=== PATIENT | male | born 1965 | race Two or more races ===

== ENCOUNTER 2024-11-06 09:17 | Inpatient (IN) | payer MEDICAID, OTHER ==
[~2024-11-06] VITALS: Ht 167.6 cm; Wt 59.0 kg
[2024-11-06] VITALS (11 sets, daily range): BP systolic 100–122; BP diastolic 51–66; PULSE 55–64; RESP 11–20; TEMP 97.7–98.5; O2SAT 96–100
--- NOTE | 2024-11-06 09:37 | ED.PDOC ---
History of Present Illness HPI Comments This is a 59-year-old male with past medical history of hypertension presented to the ED with a chief complaint of bilateral leg swelling and shortness of breath on exertion for last 1 month getting worse that prompted this visit. The patient states that for last 1 month he is getting short of breath especially after few blocks of walking, noticing unintentional weight loss for last couple of months and also complaint of chills and night sweats. He denies fever, nausea, vomiting, headache, dizziness vision, dysuria, hematuria or any changes in bowel and bladder habit or any blood in the stool. Chief Complaint: Lower Extremity Time Seen by MD: 09:22 Allergies: Coded Allergies: NO KNOWN ALLERGIES (Unverified , 11/06/24) Information Source: Patient Mode of Arrival: Ambulatory Severity: Moderate Timing: Months Duration: Since onset Prehospital treatment: None Past Medical History PAST MEDICAL HISTORY: DM, HTN Surgical History: Denies all surgeries Family History Family History: Reviewed,noncontributory to illness Social History Smoker: Cigarettes, Less Than 1 Pack/Day Alcohol: Heavy Drugs: Denies Drug Use Lives In: Homeless Constitutional: reports: chills, fatigue, malaise, sweats, weakness EENTM: denies: blurred vision, double vision, ear bleeding, ear discharge, ear drainage, ear pain, ear ringing, eye pain, eye redness, hearing loss, mouth pain, mouth swelling, nasal discharge, nose bleeding, nose congestion, nose pain, photophobia, tearing, throat pain, throat swelling, voice changes, others Respiratory: reports: shortness of breath, SOB with excertion Cardiovascular: reports: lightheadedness Gastrointestinal: denies: abdomen distended, abdominal pain, blood streaked bowels, constipated, diarrhea, dysphagia, difficulty swallowing, hematemesis, melena, nausea, poor appetite, poor fluid intake, rectal bleeding, rectal pain, vomiting, others Genitourinary: denies: burning, dysuria, flank pain, frequency, hematuria, incontinence, penile discharge, penile sore, pain, testicle pain, testicle swelling, urgency, others Neurological: denies: dizziness, fainting, headache, left sided numbness, left sided weakness, numbness, paresthesia, pre-existing deficit, right sided numbness, right sided weakness, seizure, speech problems, tingling, tremors, weakness, others Musculoskeletal: reports: others (Bilateral swelling of the ankle) Integumetry: denies: bruises, change in color, change in hair/nails, dryness, laceration, lesions, lumps, rash, wounds, others Hematologic/Lymphatic: denies: anemia, blood clots, easy bleeding, easy bruising, swollen glands, others Endocrine: denies: excessive hunger, excessive sweating, excessive thirst, excessive urination, flushing, intolerance to cold, intolerance to heat, unexp lained weight gain, unexplained weight loss, others Psychiatric: denies: anxiety, bipolar disorder, depression, hopeless, panic disorder, schizophrenia, sleepless, suicidal, others Physical Exam General Appearance: Moderate Distress, Thin HEENT: Pale Conjuntivae (L), Pale Conjuntivae (R) Neck: Full Range of Motion, Non-Tender, Normal, Normal Inspection Respiratory: Chest Non-Tender, Lungs Clear, No Accessory Muscle Use, No Respiratory Distress, Normal Breath Sounds Cardiovascular: No JVD, No Murmur, Normal Peripheral Pulses, Regular Rate/Rhythm Breast Exam: Deferred Gastrointestinal: No Organomegaly, Non Tender, No Pulsatile Mass, Normal Bowel Sounds, Soft Genitalia: Deferred Pelvic: Deferred Rectal: Deferred Extremities: Leg edema, Normal capillary refill, Normal range of motion, Non- tender, Pedal edema Neurologic: Alert, 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 Was a procedure done?: No Differential Dx Considerations may include: Generalized weakness, severe anemia, colonic malignancy, hyperglycemic nonketotic coma, DVT, CHF X-Ray, Labs, Meds, VS Vital Signs Date Time Temp Pulse Resp B/P (MAP) Pulse Ox O2 Delivery O2 Flow Rate FiO2 11/06/24 09:20 98.2 85 13 107/55 100 98.2 Lab Test 11/06/24 10:22 Range/Units White Blood Count 5.3 4.4-10.8 10^3/uL Red Blood Count 2.29 L 4.5-5.90 10^6/uL Hemoglobin 3.8 *L 13.5-17.5 g/dL Hematocrit 14.4 L 41.0-53.0 % Mean Corpuscular Volume 62.8 L 80.0-100.0 fL Mean Corpuscular Hemoglobin 16.4 L 28.0-32.0 pg Mean Corpuscular Hemoglobin Concent 26.2 L 32.0-36.0 g/dL Red Cell Distribution Width 21.7 H 11.8-14.3 % Platelet Count 227 140-450 10^3/uL Mean Platelet Volume 9.5 6.9-10.8 fL Neutrophils (%) (Auto) 71.3 37.0-80.0 % Lymphocytes (%) (Auto) 17.5 10.0-50.0 % Monocytes (%) (Auto) 8.9 0.0-12.0 % Eosinophils (%) (Auto) 2.1 0.0-7.0 % Basophils (%) (Auto) 0.2 0.0-2.0 % Neutrophils # (Auto) 3.8 1.6-8.6 10 ^3/uL Lymphocytes # (Auto) 0.9 0.4-5.4 10 ^3/uL Monocytes # (Auto) 0.5 0-1.3 10 ^3/uL Eosinophils # (Auto) 0.1 0-0.8 10 ^3/uL Basophils # (Auto) 0 0-0.2 10 ^3/uL Nucleated Red Blood Cells 0.5 % Platelet Estimate Adequate Polychromasia Slight Hypochromasia (manual) Marked Anisocytosis (manual) Moderate Microcytosis Marked Sodium Level 131 L 136-145 mmol/L Potassium Level 4.0 3.5-5.1 mmol/L Chloride Level 101 98-107 mmol/L Carbon Dioxide Level 23 20-31 mmol/L Anion Gap 7 5-15 Blood Urea Nitrogen 6 L 9-23 mg/dL Creatinine 0.90 0.700-1.30 mg/dL Glomerular Filtration Rate Calc 98 >90 mL/min BUN/Creatinine Ratio 6.7 L 10.0-20.0 Serum Glucose 543 *H 74-106 mg/dL Calcium Level 8.3 L 8.7-10.4 mg/dL Total Bilirubin 0.4 0.2-1.0 mg/dL Aspartate Amino Transferase (AST) 21 13-40 U/L Alanine Aminotransferase (ALT) 25 7-40 U/L Alkaline Phosphatase 90 46-116 U/L Total Protein 6.4 5.7-8.2 g/dL Albumin 3.4 3.2-4.8 g/dL X-Ray, Labs, Meds, VS Comment Bilateral lower extremity venous duplex Clinical History: To rule out DVT Comparison: None Technique: Duplex Doppler evaluation of the deep venous systems of both lower extremities from the common femoral veins to the popliteal veins including color Doppler and spectral/pulsed waveform analysis was performed. Findings: RIGHT SIDE: The common femoral vein demonstrates appropriate compressibility and waveform variability. There is compressibility/patency of the great saphenous vein at the proximal thigh. The femoral vein demonstrates appropriate compressibility and waveform variability. The deep femoral vein demonstrates appropriate compressibility and waveform variability. The popliteal vein demonstrates appropriate compressibility and waveform variability. There is normal compressibility at the tibioperoneal trunk. LEFT SIDE: The common femoral vein demonstrates appropriate compressibility and waveform variability. There is compressibility/patency of the great saphenous vein at the proximal thigh. The femoral vein demonstrates appropriate compressibility and waveform variability. The deep femoral vein demonstrates appropriate compressibility and waveform variability. The popliteal vein demonstrates appropriate compressibility and waveform variability. There is normal compressibility at the tibioperoneal trunk. Impression: No right or left femoropopliteal venous thrombosis. Exam: CT CT AB PEL WO CON-NO ORAL OR IV History: Weight loss Comparison Study: None Technique: Multidetector spiral CT of the abdomen was performed from lung bases to pubic symphysis. Imaging was performed without IV contrast. Axial, coronal and sagittal multiplanar reformats were obtained from the axial data set by the technologist. Radiation Dose : 1. Abdomen/Pelvis: CTDIvol 5.35 mGy, DLP 319.31 mGy*cm. Findings: Evaluation of solid organs is limited due to lack of intravenous contrast use. Lung Bases: No acute or significant lung base finding. Normal heart size. No pleural or pericardial effusion. Liver: The liver is normal in size. No focal lesions. Gallbladder and Biliary Tree: Unremarkable Spleen: Unremarkable Pancreas: Coarse calcifications associated with pancreatic atrophy. This likely represents changes of chronic pancreatitis. Adrenal Glands: Unremarkable Kidneys: Kidneys are grossly normal without calculi or hydronephrosis. Bladder: Grossly unremarkable for degree of distention. Bowel: The stomach is grossly normal in appearance. Mild bowel wall thickening of the ascending colon. The appendix is not visualized; however, no secondary findings of acute appendicitis identified. Ascites: Absent Lymphadenopathy: No mesenteric, retroperitoneal or periportal lymphadenopathy. Abdominal Wall and Mesentery: Unremarkable. Vasculature: The visualized abdominal aorta is normal in size and caliber. There is extensive atherosclerotic calcification of the aorta and its branches. Evaluation of abdominal and pelvic vessels is limited due to lack of intravenous contrast. Pelvic Organs: Unremarkable Musculoskeletal: No aggressive focal bony lesions, acute fractures or dislocation. IMPRESSION: Changes of chronic pancreatitis. Possible mild colitis involving the ascending colon. Otherwise, no acute findings. XY CHEST PORTABLE, HISTORY: Shortness of breath COMPARISON: None None TECHNICAL DATA: 1 view of the chest was obtained. FINDINGS: Lines and tubes: None Cardiomediastinal silhouette: normal Pulmonary vasculature: normal Lung expansion: normal Lung airspace: normal Lung interstitium: normal Pleura: normal Pneumothorax: no Bones: Unremarkable Other: no IMPRESSION: No acute intrathoracic abnormality. Images Reviewed?: Images reviewed and evaluated by me Time of 1ST Reevaluation: 12:01 Reevaluation 1ST: Unchanged Patient Education/Counseling: Diagnosis, Treatment Family Education/Counseling: No Family Present Comments This is a 59-year-old male presented to the ER with a chief complaint of generalized weakness and bilateral leg swelling, weight loss for last 1 month Initial physical examination demonstrated pale conjunctiva. CBC demonstrated hemoglobin 3.8 and BMP showed blood sugar 543 with normal anion gap. The patient will be admitted for evaluation of severe anemia, occult malignancy and management of uncontrolled type 2 diabetes mellitus. SEPSIS Sepsis Screen Date sepsis recognized/suspect: Nov 06, 2024 Time Sepsis recognized/suspect: 919 Recent Procedure: No On Antibiotic Therapy: No Respiratory Rate >20: No Heart Rate >90: No Temp<36 C (96.8 F) or >38.3 C: No SBP <90 or MAP <65 mmHG: No New Acute Mental Status Change: No Is the patient on CPAP, BIPAP,: No Physician Orders Urinalysis (11/06/24 09:30) Chest Portable (11/06/24 09:30) Bilat Lower Dvt (11/06/24 09:30) Stool Occult Blood (11/06/24 09:30) Ct Ab Pel Wo Con-No Oral Or Iv (11/06/24 09:30) Packedcells -Active Bleeding (11/06/24 11:08) Type And Screen (11/06/24 11:08) Insulin R (Human) (Insulin R) (11/06/24 12:00) Sodium Chloride 0.9% (11/06/24 12:00) Vital Signs Date Time Temp Pulse Resp B/P (MAP) Pulse Ox O2 Delivery O2 Flow Rate FiO2 11/06/24 09:20 98.2 85 13 107/55 100 98.2 Laboratory Tests Test 11/06/24 10:22 White Blood Count 5.3 10^3/uL (4.4-10.8) Departure 1 Departure Time of Disposition: 12:03 Impression: Primary Impression: Severe anemia Additional Impression: Uncontrolled type 2 diabetes mellitus Disposition: ADMITTED INPATIENT Admit to: Med Surg Condition: Guarded Critical Care Note Critical Care Time?: No Stability Stability form required: LUZMARIA Jara RESIDENT Nov 06, 2024 09:37
--- NOTE | 2024-11-06 10:34 | DVH ---
Bilateral lower extremity venous duplex Clinical History: To rule out DVT Comparison: None Technique: Duplex Doppler evaluation of the deep venous systems of both lower extremities from the common femora l veins to the popliteal veins including color Doppler and spectral/pulsed waveform analysis was perf ormed. Findings: RIGHT SIDE: The common femoral vein demonstrates appropriate compressibility and waveform variability. There is compressibility/patency of the great saphenous vein at the proximal thigh. The femoral vein demonstrates appropriate compressibility and waveform variability. The deep femoral vein demonstrates appropriate compressibility and waveform variability. The popliteal vein demonstrates appropriate compressibility and waveform variability. There is normal compressibility at the tibioperoneal trunk. LEFT SIDE: The common femoral vein demonstrates appropriate compressibility and waveform variability. There is compressibility/patency of the great saphenous vein at the proximal thigh. The femoral vein demonstrates appropriate compressibility and waveform variability. The deep femoral vein demonstrates appropriate compressibility and waveform variability. The popliteal vein demonstrates appropriate compressibility and waveform variability. There is normal compressibility at the tibioperoneal trunk. Impression: No right or left femoropopliteal venous thrombosis.
--- NOTE | 2024-11-06 10:38 | DVH ---
Exam: CT CT AB PEL WO CON-NO ORAL OR IV History: Weight loss Comparison Study: None Technique: Multidetector spiral CT of the abdomen was performed from lung bases to pubic symphysis. I maging was performed without IV contrast. Axial, coronal and sagittal multiplanar reformats were obta ined from the axial data set by the technologist. Radiation Dose : 1. Abdomen/Pelvis: CTDIvol 5.35 mGy, DLP 319.31 mGy*cm. Findings: Evaluation of solid organs is limited due to lack of intravenous contrast use. Lung Bases: No acute or significant lung base finding. Normal heart size. No pleural or pericardial effusion. Liver: The liver is normal in size. No focal lesions. Gallbladder and Biliary Tree: Unremarkable Spleen: Unremarkable Pancreas: Coarse calcifications associated with pancreatic atrophy. This likely represents changes of chronic pancreatitis. Adrenal Glands: Unremarkable Kidneys: Kidneys are grossly normal without calculi or hydronephrosis. Bladder: Grossly unremarkable for degree of distention. Bowel: The stomach is grossly normal in appearance. Mild bowel wall thickening of the ascending colon . The appendix is not visualized; however, no secondary findings of acute appendicitis identified. Ascites: Absent Lymphadenopathy: No mesenteric, retroperitoneal or periportal lymphadenopathy. Abdominal Wall and Mesentery: Unremarkable. Vasculature: The visualized abdominal aorta is normal in size and caliber. There is extensive athero sclerotic calcification of the aorta and its branches. Evaluation of abdominal and pelvic vessels is limited due to lack of intravenous contrast. Pelvic Organs: Unremarkable Musculoskeletal: No aggressive focal bony lesions, acute fractures or dislocation. IMPRESSION: Changes of chronic pancreatitis. Possible mild colitis involving the ascending colon. Otherwise, no acute findings.
--- NOTE | 2024-11-06 10:41 | DVH ---
XY CHEST PORTABLE, HISTORY: Shortness of breath COMPARISON: None None TECHNICAL DATA: 1 view of the chest was obtained. FINDINGS: Lines and tubes: None Cardiomediastinal silhouette: normal Pulmonary vasculature: normal Lung expansion: normal Lung airspace: normal Lung interstitium: normal Pleura: normal Pneumothorax: no Bones: Unremarkable Other: no IMPRESSION: No acute intrathoracic abnormality.
[2024-11-06 10:50] LABS: Hematocrit 14.4 % (41.0-53.0); Mean Corpuscular Hemoglobin 16.4 pg (28.0-32.0); Mean Corpuscular Volume 62.8 fL (80.0-100.0); Nucleated Red Blood Cells % 0.5 %
[2024-11-06 10:59] LABS: Hemoglobin 3.8 g/dL (13.5-17.5)
[2024-11-06 11:08] LABS: Alanine Aminotransferase 25 U/L (7-40); Alkaline Phosphatase 90 U/L (46-116); Anion Gap 7 (5-15); BUN/Creatinine Ratio 6.7 (10.0-20.0); Carbon Dioxide 23 mmol/L (20-31); Chloride 101 mmol/L (98-107); Potassium 4.0 mmol/L (3.5-5.1); Total Protein 6.4 g/dL (5.7-8.2)
[2024-11-06 11:09] LABS: Albumin 3.4 g/dL (3.2-4.8); Bilirubin, Total 0.4 mg/dL (0.2-1.0)
[2024-11-06 11:20] LABS: Blood Urea Nitrogen 6 mg/dL (9-23); Calcium 8.3 mg/dL (8.7-10.4); Sodium 131 mmol/L (136-145)
[2024-11-06 11:22] LABS: Glucose 543 mg/dL (74-106)
[2024-11-06 11:30] LABS: Anisocytosis Moderate; Polychromasia Slight
[2024-11-06] MEDS ORDERED: DEXTROSE (50%) 50ML SYRG IV PRN (12:30)
[2024-11-06] MEDS ORDERED: ONDANSETRON HCL 4 MG/2 ML VIAL IV PRN (12:30)
[2024-11-06] MEDS ORDERED: DOCUSATE SOD 100 MG CAP PO PRN (12:30)
[2024-11-06] MEDS ORDERED: ACETAMINOPHEN 325 MG TAB PO PRN (12:30)
[2024-11-06] MEDS ORDERED: HYDROcodone-ACET 5/325MG TAB PO PRN (12:30)
--- NOTE | 2024-11-06 12:35 | DVHHP2 ---
Admitting Diagnosis: Lower extremity edema History of Present Illness This is a 59-year-old male with past medical history of hypertension presented to the ED with a chief complaint of bilateral leg swelling and shortness of breath on exertion for last 1 month getting worse that prompted this visit. The patient states that for last 1 month he is getting short of breath especially after few blocks of walking, noticing unintentional weight loss for last couple of months and also complaint of chills and night sweats. He denies fever, nausea, vomiting, headache, dizziness vision, dysuria, hematuria or any changes in bowel and bladder habit or any blood in the stool. PAST MEDICAL HISTORY: DM, HTN Surgical History: Denies all surgeries Family History Family History: Reviewed,noncontributory to illness Social History Smoker: Cigarettes, Less Than 1 Pack/Day Alcohol: Heavy Drugs: Denies Drug Use Lives In: Homeless Allergies: Coded Allergies: NO KNOWN ALLERGIES (Unverified , 11/06/24) Vital Signs Vital Signs Date Time Temp Pulse Resp B/P (MAP) Pulse Ox O2 Delivery O2 Flow Rate FiO2 11/06/24 09:20 98.2 85 13 107/55 100 98.2 Physical Exam Generally-59 years old male, well nourished well developed. No apparent distress HEENT-atraumatic normocephalic Heart-regular rate and rhythm Lungs decreased breath sounds bilateral lower lung ro Abdomen soft nontender nondistended Musculoskeletal plus two pedal edema Neuro-AO x3, no focal deficits SEPSIS Sepsis Screen Date sepsis recognized/suspect: Nov 06, 2024 Time Sepsis recognized/suspect: 919 Recent Procedure: No On Antibiotic Therapy: No Respiratory Rate >20: No Heart Rate >90: No Temp<36 C (96.8 F) or >38.3 C: No SBP <90 or MAP <65 mmHG: No New Acute Mental Status Change: No Is the patient on CPAP, BIPAP,: No Physician Orders Urinalysis (11/06/24 09:30) Chest Portable (11/06/24 09:30) Bilat Lower Dvt (11/06/24 09:30) Stool Occult Blood (11/06/24 09:30) Ct Ab Pel Wo Con-No Oral Or Iv (11/06/24 09:30) Packedcells -Active Bleeding (11/06/24 11:08) Type And Screen (11/06/24 11:08) Sodium Chloride 0.9% (11/06/24 12:00) * [facility] Shoe Clerk (11/06/24 12:12) Beta-Hydroxybutyrate (11/06/24:24) Comprehensive Metabolic Panel (11/07/24 05:00) Comprehensive Metabolic Panel (11/08/24 05:00) Comprehensive Metabolic Panel (11/09/24 05:00) Comprehensive Metabolic Panel (11/10/24 05:00) Comprehensive Metabolic Panel (11/11/24 05:00) Complete Blood Count (11/07/24 05:00) Complete Blood Count (11/08/24 05:00) Complete Blood Count (11/09/24 05:00) Complete Blood Count (11/10/24 05:00) Complete Blood Count (11/11/24 05:00) Admit (11/06/24:24) Code Status (11/06/24:) Vital Signs .PER UNIT PROTOCOL (11/06/24:24) Review Orders With Adm.Md (11/06/24 12:24) Encourage Activity As Tolerate (11/06/24 12:24) Npo (Nothing By Mouth) Diet (11/06/24 Lunch) Sodium Chloride Lock (Saline Lock Ns) (11/06/24 14:00) Docusate Sodium Capsule (Colace Capsule) (11/06/24 12:30) Acetaminophen Tablet (Tylenol Tablet) (11/06/24 12:30) Notify Md Of Changes From Base (11/06/24 12:24) Advance Directive (11/06/24 12:24) Patient Condition (11/06/24 12:24) Allergies (11/06/24 12:24) Hydrocodone-Acet 5/325mg Tab ([place] 5/32 (11/06/24 12:30) Ondansetron Hcl (Zofran) (11/06/24 12:30) Glucose Blood (Accu-Chek Comfort Curve T (11/06/24 17:00) Insulin R (Human) (Insulin R) (11/06/24 17:00) Dextrose 50% Syringe (11/06/24 12:30) Iron Panel (11/06/24:26) Vital Signs Date Time Temp Pulse Resp B/P (MAP) Pulse Ox O2 Delivery O2 Flow Rate FiO2 11/06/24 09:20 98.2 85 13 107/55 100 98.2 Laboratory Tests Test 11/06/24 10:22 White Blood Count 5.3 10^3/uL (4.4-10.8) Results Labs Test 11/06/24 10:22 Range/Units White Blood Count 5.3 4.4-10.8 10^3/uL Red Blood Count 2.29 L 4.5-5.90 10^6/uL Hemoglobin 3.8 *L 13.5-17.5 g/dL Hematocrit 14.4 L 41.0-53.0 % Mean Corpuscular Volume 62.8 L 80.0-100.0 fL Mean Corpuscular Hemoglobin 16.4 L 28.0-32.0 pg Mean Corpuscular Hemoglobin Concent 26.2 L 32.0-36.0 g/dL Red Cell Distribution Width 21.7 H 11.8-14.3 % Platelet Count 227 140-450 10^3/uL Mean Platelet Volume 9.5 6.9-10.8 fL Neutrophils (%) (Auto) 71.3 37.0-80.0 % Lymphocytes (%) (Auto) 17.5 10.0-50.0 % Monocytes (%) (Auto) 8.9 0.0-12.0 % Eosinophils (%) (Auto) 2.1 0.0-7.0 % Basophils (%) (Auto) 0.2 0.0-2.0 % Neutrophils # (Auto) 3.8 1.6-8.6 10 ^3/uL Lymphocytes # (Auto) 0.9 0.4-5.4 10 ^3/uL Monocytes # (Auto) 0.5 0-1.3 10 ^3/uL Eosinophils # (Auto) 0.1 0-0.8 10 ^3/uL Basophils # (Auto) 0 0-0.2 10 ^3/uL Nucleated Red Blood Cells 0.5 % Platelet Estimate Adequate Polychromasia Slight Hypochromasia (manual) Marked Anisocytosis (manual) Moderate Microcytosis Marked Sodium Level 131 L 136-145 mmol/L Potassium Level 4.0 3.5-5.1 mmol/L Chloride Level 101 98-107 mmol/L Carbon Dioxide Level 23 20-31 mmol/L Anion Gap 7 5-15 Blood Urea Nitrogen 6 L 9-23 mg/dL Creatinine 0.90 0.700-1.30 mg/dL Glomerular Filtration Rate Calc 98 >90 mL/min BUN/Creatinine Ratio 6.7 L 10.0-20.0 Serum Glucose 543 *H 74-106 mg/dL Calcium Level 8.3 L 8.7-10.4 mg/dL Total Bilirubin 0.4 0.2-1.0 mg/dL Aspartate Amino Transferase (AST) 21 13-40 U/L Alanine Aminotransferase (ALT) 25 7-40 U/L Alkaline Phosphatase 90 46-116 U/L Total Protein 6.4 5.7-8.2 g/dL Albumin 3.4 3.2-4.8 g/dL Primary Diagnosis Shortness of breaths Severe anemia microcytic Lateral lower extremity rule out CHF Plan Check a blood Check ferritin iron to assess for iron deficiency anemia Check echo of the heart to assess for heart failure If positive for heart failure start iv lasix as BP tolerated GI consult in ED. Follow up with the recommendation NPO after midnight PPI b.i.d. for GI prophylaxis Transfusion goal greater than seven Keep active type and screen Check hemoglobin A1c Insulin sliding scale Full code SCD for DVT prophylaxis Plan discussed with: Patient Problems List: (1) Uncontrolled type 2 diabetes mellitus Status: Acute (2) Severe anemia Status: Acute Date of Service: Nov 06, 2024 Billing Provider: SHAYY DE LOS SANTOS MD Common Visit Codes: [id number] INP/OBS CARE (HIGH) SHAYY DE LOS SANTOS MD Nov 06, 2024 12:34
[2024-11-06] MEDS: SODIUM CHLORIDE 0.9% 500 ML IV ONE (12:57)
--- NOTE | 2024-11-06 13:07 | DVHINCON2 ---
GI Consult Consult Note GI consult note Date of Consultation: 11/06/2024 Chief Complaint: Severe anemia Referring Physician: Dr. Angel H&P: 59-year-old Salvadorean-speaking patient with past medical history of hypertension presented to ER with complains of bilateral leg swelling and shortness of breath for the past one month. RN at bedside translating. Patient denies abdominal pain. No nausea vomiting. Regular bowel movements. No melena or red blood in stool. Patient has unintentional weight loss for the last couple of months probably more than 20 lb. No EGD or colonoscopy in past. Patient denies having history of anemia or blood transfusions in past Past Medical History: Dm, HTN Past Surgical History: Denies Social History: Smoker: Cigarettes, Less Than 1 Pack/Day Alcohol: Heavy Drugs: Denies Drug Use Lives In: Homeless Family History: Noncontributory Review of Systems: Constitutional: no fever, chill, weight loss HEENT: no eye pain, no hearing loss, no oral lesion, no scleral icterus Heart: no chest pain, no chest pressure Lung: no cough, no dyspnea with exertion Abdomen: see HPI Physical exam: General: NAD, AAOX3 Chest: , lung ro clear to auscultation Heart: RRR, no murmur Abdomen: non-distended, no tenderness to palpation, +BS Labs: Labs Test 11/06/24 12:46 11/06/24 10:22 Range/Units White Blood Count 5.3 4.4-10.8 10^3/uL Red Blood Count 2.29 L 4.5-5.90 10^6/uL Hemoglobin 3.8 *L 13.5-17.5 g/dL Hematocrit 14.4 L 41.0-53.0 % Mean Corpuscular Volume 62.8 L 80.0-100.0 fL Mean Corpuscular Hemoglobin 16.4 L 28.0-32.0 pg Mean Corpuscular Hemoglobin Concent 26.2 L 32.0-36.0 g/dL Red Cell Distribution Width 21.7 H 11.8-14.3 % Platelet Count 227 140-450 10^3/uL Mean Platelet Volume 9.5 6.9-10.8 fL Neutrophils (%) (Auto) 71.3 37.0-80.0 % Lymphocytes (%) (Auto) 17.5 10.0-50.0 % Monocytes (%) (Auto) 8.9 0.0-12.0 % Eosinophils (%) (Auto) 2.1 0.0-7.0 % Basophils (%) (Auto) 0.2 0.0-2.0 % Neutrophils # (Auto) 3.8 1.6-8.6 10 ^3/uL Lymphocytes # (Auto) 0.9 0.4-5.4 10 ^3/uL Monocytes # (Auto) 0.5 0-1.3 10 ^3/uL Eosinophils # (Auto) 0.1 0-0.8 10 ^3/uL Basophils # (Auto) 0 0-0.2 10 ^3/uL Nucleated Red Blood Cells 0.5 % Platelet Estimate Adequate Polychromasia Slight Hypochromasia (manual) Marked Anisocytosis (manual) Moderate Microcytosis Marked Sodium Level 131 L 136-145 mmol/L Potassium Level 4.0 3.5-5.1 mmol/L Chloride Level 101 98-107 mmol/L Carbon Dioxide Level 23 20-31 mmol/L Anion Gap 7 5-15 Blood Urea Nitrogen 6 L 9-23 mg/dL Creatinine 0.90 0.700-1.30 mg/dL Glomerular Filtration Rate Calc 98 >90 mL/min BUN/Creatinine Ratio 6.7 L 10.0-20.0 Serum Glucose 543 *H 74-106 mg/dL Calcium Level 8.3 L 8.7-10.4 mg/dL Total Bilirubin 0.4 0.2-1.0 mg/dL Aspartate Amino Transferase (AST) 21 13-40 U/L Alanine Aminotransferase (ALT) 25 7-40 U/L Alkaline Phosphatase 90 46-116 U/L Total Protein 6.4 5.7-8.2 g/dL Albumin 3.4 3.2-4.8 g/dL Imaging: CT abdomen pelvis IMPRESSION: Changes of chronic pancreatitis. Possible mild colitis involving the ascending colon. Otherwise, no acute findings. Assessment: Severe anemia Weight loss Possible colitis Plan: Discussed with Dr. Leyva Transfuse until hemoglobin 7.0 Protonix Stool for occult blood Clear liquid diet - Pt will be scheduled for a possible EGD tomorrow 11/06/2024 if medically stable and cleared for procedure. Pt was informed of the risks (bleeding, infection, perforation, reaction to sedation medications and cardiopulmonary arrest) and benefit and is agreeable to undergo the procedures. Discussed plan with patient RN and Dr. Poole ER doctor Thank you for this consult Date of Service: Nov 06, 2024 Billing Provider: CHRIS COOPER Common Visit Codes: CONSULT ONLY Consultation Codes: [id number] CONSULT <60MIN CHRIS COOPER Nov 06, 2024 13:07
[2024-11-06] MEDS: InsuLIN REG 1unit/0.01ml Soln (100units/ml) IV ONE ×2 (13:11→15:25)
[2024-11-06 13:32] LABS: Iron 11.0 ug/dL (65-175)
[2024-11-06 13:33] LABS: Total Iron Binding Capacity 327.0 ug/dL (250-425)
[2024-11-06] MEDS: SODIUM CHLOR 0.9% PF (SALINE LOCK) 10ML VIAL/SYR IV SCH (14:00)
[2024-11-06 14:14] LABS: Urine Protein, UAD Negative (Negative)
[2024-11-06 14:28] LABS: Amphetamine Screen, Urine Neg (NEGATIVE); Barbiturate Scree,Urine Neg (NEGATIVE); Benzodiazephine Screen, Urine Neg (NEGATIVE); Cannabinoid Screen, Urine Neg (NEGATIVE); Cocaine Screen, Urine Neg (NEGATIVE); Opiate Scree,Urine Neg (NEGATIVE); Phencyclidine Screen, Urine Neg (NEGATIVE)
[2024-11-06] MEDS: ACCU-CHEK COMFORT CURVE STRIP VI SCH (17:48)
[2024-11-06] MEDS: InsuLIN REG 1unit/0.01ml Soln (100units/ml) SC SCH (17:49)
[2024-11-07] VITALS (13 sets, daily range): BP systolic 100–118; BP diastolic 52–61; PULSE 50–69; RESP 16–18; TEMP 97.4–98.6; O2SAT 97–100
--- NOTE | 2024-11-07 00:20 | DVHSR ---
APPROVED REPORT EXAM: Two-dimensional and M-mode echocardiogram with Doppler and color Doppler. Blood Pressure: 107/55 mmHg INDICATION b/l lower leg edema assess for CHF RISK FACTORS Height: 5' 7", Weight: 130 DIMENSIONS LVDd5.2 (3.8-5.7cm)LA (2D)4.1 (1.9-4.0cm)Aortic Root3.5 (2.0-3.7cm) LVDs3.6 (2.5-4.0cm)LA (MM) (1.9-4.0cm)Aortic Cusp Exc1.6 (1.5-2.0cm) EF (%) 57.0 (55-70%)Rt. Atrium4.1 (1.9-4.0cm)Asc. Aorta3.2 cm IVSd0.8 (0.7-1.1cm)RV (D) (1.8-2.4cm) PWd0.8 (0.7-1.1cm) Mitral Valve MitralMitral Stenosis E wave1.10m/sMV Mean GR.mmHg A wave0.80m/sMV Peak GR.mmHg E/A ratio1.42D MVAcm2 Aortic Valve Aortic ValveAortic Stenosis V11.20m/Marciano Mean GR.5mmHg V21.60m/Marciano Peak GR.11mmHg LVOT Diameter2.1 (1.8-2.4cm)Doppler AVA2.60cm2 Pulmonic Valve V20.60m/s Tricuspid Valve TR Velocity2.80m/s [id number] Conclusion LV EF IS 65% SLIGHTLY DILATED LA MILD PULMONARY HYPERTENSION RVSP IS 42 MM OF HG AND IS HIGH NORMAL VALVES NO EFFUSION
[2024-11-07 07:55] LABS: Mean Corpuscular Volume 76.4 fL (80.0-100.0)
[2024-11-07 08:00] LABS: Hematocrit 30.5 % (41.0-53.0); Hemoglobin 10.0 g/dL (13.5-17.5); Mean Corpuscular Hemoglobin 25.0 pg (28.0-32.0); Nucleated Red Blood Cells % 0.4 %
[2024-11-07 08:08] LABS: Alanine Aminotransferase 35 U/L (7-40); Alkaline Phosphatase 69 U/L (46-116); Anion Gap 7 (5-15); Carbon Dioxide 24 mmol/L (20-31); Glucose 103 mg/dL (74-106); Potassium 3.7 mmol/L (3.5-5.1); Sodium 139 mmol/L (136-145)
[2024-11-07 08:09] LABS: Chloride 108 mmol/L (98-107)
[2024-11-07 08:11] LABS: Albumin 2.9 g/dL (3.2-4.8); BUN/Creatinine Ratio 8.5 (10.0-20.0); Bilirubin, Total 1.2 mg/dL (0.2-1.0); Blood Urea Nitrogen < 5 mg/dL (9-23); Calcium 8.0 mg/dL (8.7-10.4); Total Protein 5.5 g/dL (5.7-8.2)
[2024-11-07 08:14] LABS: INR 1.14 (0.9-1.15); Prothrombin Time 11.9 sec (9.3-11.8)
[2024-11-07] MEDS: PANTOPRAZOLE 40 MG/10 ML VIAL INJ IV SCH (10:00)
[2024-11-07] MEDS ORDERED: fentaNYL CITRATE 100 MCG/2 ML VL ONE (12:07)
[2024-11-07] MEDS ORDERED: ONDANSETRON HCL 4 MG/2 ML VIAL ONE (12:08)
[2024-11-07] MEDS ORDERED: LIDOCAINE 2% (LOCAL ANESTH.) PF 5ml SDV ONE (12:08)
[2024-11-07] MEDS ORDERED: MIDAZOLAM HCL 2MG/2ML 2ml VIAL (1mg/ml) ONE (12:08)
[2024-11-07] MEDS ORDERED: GLYCOPYRROLATE 0.2 MG/ML 1ML VIAL ONE (12:08)
[2024-11-07] MEDS ORDERED: PROPOFOL 10 MG/ML 20 ML IV ONE (12:08)
--- NOTE | 2024-11-07 12:21 | DVHPN2 ---
Subjective The patient is seen and examined at bedside. Complain of throat pain. Reviewed: Care Plan, H&P, Labs, Medications, Previous Orders, Radiology Changes from previous H/P or p: No Changes Objective Vitals Vital Signs Date Time Temp Pulse Resp B/P (MAP) Pulse Ox O2 Delivery O2 Flow Rate FiO2 11/07/24 09:00 98.5 60 16 115/55 (75) 97 98.5 11/07/24 08:00 Room Air* 0 21 Intake/Output Intake and Output 11/07/24 07:00 Intake Total 1800 ml Output Total 400 ml Balance 1400 ml Intake Oral 0 ml IV Total 0 ml Blood Product 1500 ml Other 300 ml Output Urine Total 400 ml # Voids 1 General Appearance: Alert, Oriented X3, Cooperative, No acute distress HEENT: Atraumatic, PERRLA, EOMI, Mucous membr. moist/pink Neck: Supple Lungs: Clear to auscultation, Normal air movement Cardiovascular: Regular rate, Normal S1, Normal S2, No murmurs, Gallops, Rubs Abdomen: Normal bowel sounds, Soft, No tenderness Neuro: Cranial nerves 3-12 NL Psych/Mental Status: Mental status NL Medications Current Medications Medications Dose Ordered Sig/Beth Route Start Time Stop Time Status Last Admin Dose Admin Sodium Chloride 10 ml Q8HR IV 11/06/24 14:00 11/07/24 06:43 10 ML Docusate Sodium 100 mg BIDPRN PRN PO 11/06/24 12:30 Acetaminophen 650 mg Q6HP PRN PO 11/06/24 12:30 Acetaminophen/ Hydrocodone Bitart 1 tab Q4HP PRN PO 11/06/24 12:30 Ondansetron HCl 4 mg Q4HP PRN IV 11/06/24 12:30 Diagnostic Test (Pha) 1 strip ACHS 11/06/24 17:00 11/07/24 06:45 1 STRIP Insulin Human Regular ACHS SC 11/06/24 17:00 11/06/24 17:49 6 UNITS Dextrose 50 ml UD PRN IV 11/06/24 12:30 Pantoprazole Sodium 40 mg DAILY IV 11/07/24 10:00 Laboratory Results Laboratory Tests 11/07/24 07:31 Chemistry Test 11/07/24 07:31 Albumin 2.9 g/dL (3.2-4.8) L Calcium Level 8.0 mg/dL (8.7-10.4) L Total Protein 5.5 g/dL (5.7-8.2) L Coagulation Test 11/07/24 07:31 Prothrombin Time 11.9 sec (9.3-11.8) H Prothrombin Time INR 1.14 (0.9-1.15) Cardiac Markers Test 11/06/24 12:46 B-Type Natriuretic Peptide 123.36 pg/mL (0-100) LFT Test 11/07/24 07:31 Alanine Aminotransferase (ALT) 35 U/L (7-40) Alkaline Phosphatase 69 U/L (46-116) Aspartate Amino Transferase (AST) 81 U/L (13-40) H Total Bilirubin 1.2 mg/dL (0.2-1.0) H Urinalysis Test 11/06/24 13:14 Urine Color Light-yellow (Yellow) Urine Clarity Clear (Clear) Urine pH 6.5 (5.0-9.0) Urine Specific [place] 1.019 (1.001-1.035) Urine Protein Negative (Negative) Urine Ketones Negative (Negative) Urine Blood Negative /uL (Negative) Urine Nitrite Negative (Negative) Urine Bilirubin Negative (Negative) Urine Urobilinogen Normal mg/dL (Negative) Urine Leukocyte Esterase Negative /uL (Negative) Urine RBC 1 /hpf (0 - 3) Urine Microscopic WBC < 1 /HPF (0-3) Urine Squamous Epithelial Cells Few /hpf (<5) Urine Bacteria None seen /hpf (None Seen) Urine Glucose 4+ mg/dL (Normal) H Labs and/or images reviewed: Labs reviewed by me Assessment/Plan Assessment/Plan Shortness of breaths Severe anemia microcytic, status post transfusions Lateral lower extremity rule out CHF Oral candidiasis Esophageal candidiasis status post endoscopy Continuing current management. Continuing with Protonix. Continuing to transfuse as needed if hemoglobin less than seven. Nystatin swish and swallow. Waiting for colonoscopy. HIV test This medical document was created using an electronic medical record system with M*M flurency direct computerized dictation system. Although this document has been carefully reviewed, there may still be some phonetic and typographical errors. These areas are purely typographical due to imperfections of the software programs, and do not reflect any compromise in the patient's medical care. Plan discussed with: Patient Date of Service: Nov 07, 2024 Billing Provider: ABDULAZIZ DURBIN MD Common Visit Codes: [id number] INP/OBS CARE(HIGH) ABDULAZIZ DURBIN MD Nov 07, 2024 12:21
--- NOTE | 2024-11-07 12:25 | DVHOP2 ---
Operative Report DATE OF OPERATION: 11/07/24 PROCEDURE: Upper Endoscopy with biopsy. PREOPERATIVE INDICATION: The patient is a 59 -year-old male undergoing endoscopy for severe microcytic anemia POSTOPERATIVE DIAGNOSES: 1. Oral thrush with moderate candidal esophagitis and whitish yellowish plaques present throughout the length of the esophagus 2. Minimal gastritis otherwise normal examination up to the 2nd and 3rd part of the duodenum PROCEDURE PERFORMED BY: April Leyva GI NURSE: Ellie SCOPE: Olympus videoendoscope. ASA CLASS: 3. PREOPERATIVE MEDICATIONS: Dr. Arvind Kohli PROCEDURE IN DETAIL: After obtaining an informed consent, the patient was placed on left lateral decubitus position. The patient was then sedated with the above medications. A bite block was placed between his teeth. The endoscope was then passed through the oropharynx, into the esophagus, and through the stomach and pylorus up to the second and third part of the duodenum. The endoscope was then withdrawn. The 2nd and 3rd part of the duodenum and the duodenal bulb were normal. Duodenal biopsies were obtained The pre-pyloric area antrum and body showed minimal gastritis. Gastric biopsies were obtained. On retroflexion the fundus and cardia were normal. The endoscope was then withdrawn into the distal esophagus. There was no significant hiatal hernia slightly irregular squamocolumnar junction and evidence of moderate candidal esophagitis There was whitish yellowish plaques present throughout the length of the esophagus. Esophageal biopsies were obtained. Patient also had some oral thrush otherwise posterior pharynx and proximal esophagus were unremarkable The patient tolerated the procedure well without difficulty. COMPLICATIONS : None SPECIMENS: Duodenal biopsies Gastric biopsies Esophageal biopsies DISPOSITION: Transfer back to the floor Stable PLAN: 1. Await for biopsy result 2. Will place pt on Protonix 40 mg p.o. daily 3. Nystatin swish and swallow 5 mL p.o. q.8 hours 4. Await stool for occult blood ; check CEA 5. I will tentatively plan a colonoscopy for SundayNov 10, if discharge patient can follow up in my office as an outpatient to APRIL Amaro MD Nov 07, 2024 12:25
[2024-11-08] VITALS (8 sets, daily range): BP systolic 103–126; BP diastolic 53–76; PULSE 50–60; RESP 16–17; TEMP 97.6–98.1; O2SAT 96–100
[2024-11-08 07:50] LABS: Hemoglobin 9.9 g/dL (13.5-17.5)
[2024-11-08 07:54] LABS: Hematocrit 31.0 % (41.0-53.0); Mean Corpuscular Hemoglobin 24.6 pg (28.0-32.0); Mean Corpuscular Volume 77.0 fL (80.0-100.0); Nucleated Red Blood Cells % 0.6 %
[2024-11-08 08:13] LABS: Alkaline Phosphatase 68 U/L (46-116); Anion Gap 8 (5-15); BUN/Creatinine Ratio 8.5 (10.0-20.0); Bilirubin, Total 1.0 mg/dL (0.2-1.0); Carbon Dioxide 22 mmol/L (20-31); Potassium 3.6 mmol/L (3.5-5.1); Sodium 139 mmol/L (136-145)
[2024-11-08 08:35] LABS: Alanine Aminotransferase 44 U/L (7-40); Albumin 2.9 g/dL (3.2-4.8); Blood Urea Nitrogen 6 mg/dL (9-23); Calcium 8.2 mg/dL (8.7-10.4); Chloride 109 mmol/L (98-107); Glucose 128 mg/dL (74-106); Total Protein 5.4 g/dL (5.7-8.2)
[2024-11-08 09:30] LABS: Anisocytosis Slight
--- NOTE | 2024-11-08 15:14 | DVHPN2 ---
Subjective The patient is seen and examined at bedside. The patient is tired. Reviewed: Care Plan, H&P, Labs, Medications, Previous Orders, Radiology Changes from previous H/P or p: No Changes Objective Vitals Vital Signs Date Time Temp Pulse Resp B/P (MAP) Pulse Ox O2 Delivery O2 Flow Rate FiO2 11/08/24 12:30 98.0 52 16 103/58 (73) 99 98.0 11/08/24 08:00 Room Air* 0 21 Intake/Output Intake and Output 11/08/24 07:00 Intake Total 320 ml Balance 320 ml Intake Oral 120 ml IV Total 200 ml # Voids 8 General Appearance: Alert, Cooperative, No acute distress HEENT: Atraumatic, PERRLA, EOMI, Mucous membr. moist/pink Neck: Supple Lungs: Clear to auscultation, Normal air movement Cardiovascular: Regular rate, Normal S1, Normal S2, No murmurs, Gallops, Rubs Abdomen: Normal bowel sounds, Soft, No tenderness Neuro: Cranial nerves 3-12 NL Psych/Mental Status: Mental status NL Medications Current Medications Medications Dose Ordered Sig/Beth Route Start Time Stop Time Status Last Admin Dose Admin Sodium Chloride 10 ml Q8HR IV 11/06/24 14:00 11/08/24 12:45 10 ML Docusate Sodium 100 mg BIDPRN PRN PO 11/06/24 12:30 Acetaminophen 650 mg Q6HP PRN PO 11/06/24 12:30 Acetaminophen/ Hydrocodone Bitart 1 tab Q4HP PRN PO 11/06/24 12:30 Ondansetron HCl 4 mg Q4HP PRN IV 11/06/24 12:30 Diagnostic Test (Pha) 1 strip ACHS 11/06/24 17:00 11/08/24 12:43 1 STRIP Insulin Human Regular ACHS SC 11/06/24 17:00 11/08/24 12:44 3 UNITS Dextrose 50 ml UD PRN IV 11/06/24 12:30 Pantoprazole Sodium 40 mg DAILY IV 11/07/24 10:00 11/08/24 09:48 40 MG Laboratory Results Laboratory Tests 11/08/24 06:15 Chemistry Test 11/08/24 06:15 Albumin 2.9 g/dL (3.2-4.8) L Calcium Level 8.2 mg/dL (8.7-10.4) L Total Protein 5.4 g/dL (5.7-8.2) L LFT Test 11/08/24 06:15 Alanine Aminotransferase (ALT) 44 U/L (7-40) H Alkaline Phosphatase 68 U/L (46-116) Aspartate Amino Transferase (AST) 80 U/L (13-40) H Total Bilirubin 1.0 mg/dL (0.2-1.0) Urinalysis Test 11/06/24 13:14 Urine Color Light-yellow (Yellow) Urine Clarity Clear (Clear) Urine pH 6.5 (5.0-9.0) Urine Specific [place] 1.019 (1.001-1.035) Urine Protein Negative (Negative) Urine Ketones Negative (Negative) Urine Blood Negative /uL (Negative) Urine Nitrite Negative (Negative) Urine Bilirubin Negative (Negative) Urine Urobilinogen Normal mg/dL (Negative) Urine Leukocyte Esterase Negative /uL (Negative) Urine RBC 1 /hpf (0 - 3) Urine Microscopic WBC < 1 /HPF (0-3) Urine Squamous Epithelial Cells Few /hpf (<5) Urine Bacteria None seen /hpf (None Seen) Urine Glucose 4+ mg/dL (Normal) H Labs and/or images reviewed: Labs reviewed by me Assessment/Plan Assessment/Plan Shortness of breaths Severe anemia microcytic, status post transfusions Lateral lower extremity rule out CHF Oral candidiasis Esophageal candidiasis status post endoscopy Continuing current management. Continuing with Protonix. Continuing to transfuse as needed if hemoglobin less than seven. Nystatin swish and swallow. Waiting for colonoscopy. HIV test This medical document was created using an electronic medical record system with M*M flurency direct computerized dictation system. Although this document has been carefully reviewed, there may still be some phonetic and typographical errors. These areas are purely typographical due to imperfections of the software programs, and do not reflect any compromise in the patient's medical care. Plan discussed with: Patient Date of Service: Nov 08, 2024 Billing Provider: ABDULAZIZ DURBIN MD Common Visit Codes: [id number] INP/OBS CARE(HIGH) ABDULAZIZ DURBIN MD Nov 08, 2024 15:14
[2024-11-09] VITALS (8 sets, daily range): BP systolic 115–130; BP diastolic 64–74; PULSE 46–56; RESP 14–18; TEMP 97.6–98.4; O2SAT 98–99
[2024-11-09 07:21] LABS: Alkaline Phosphatase 68 U/L (46-116); Anion Gap 6 (5-15); Carbon Dioxide 25 mmol/L (20-31); Potassium 3.6 mmol/L (3.5-5.1); Sodium 139 mmol/L (136-145)
[2024-11-09 07:22] LABS: Bilirubin, Total 0.7 mg/dL (0.2-1.0)
[2024-11-09 07:25] LABS: Alanine Aminotransferase 57 U/L (7-40); Albumin 2.9 g/dL (3.2-4.8); BUN/Creatinine Ratio 8.1 (10.0-20.0); Blood Urea Nitrogen < 5 mg/dL (9-23); Calcium 8.3 mg/dL (8.7-10.4); Chloride 108 mmol/L (98-107); Glucose 112 mg/dL (74-106); Total Protein 5.5 g/dL (5.7-8.2)
[2024-11-09 07:37] LABS: Hematocrit 30.7 % (41.0-53.0); Mean Corpuscular Hemoglobin 25.0 pg (28.0-32.0)
[2024-11-09 07:39] LABS: Hemoglobin 10.0 g/dL (13.5-17.5); Mean Corpuscular Volume 77.1 fL (80.0-100.0); Nucleated Red Blood Cells % 0.2 %
[2024-11-09 07:56] LABS: Anisocytosis Slight; Ovalocytes FEW
[2024-11-09] MEDS: GOLYTELY 4L KIT PO ONE (12:55)
--- NOTE | 2024-11-09 13:16 | DVHPN2 ---
Subjective The patient is seen and examined at bedside. No complaint today. The patient needs drinking GoLYTELY for colonoscopy tomorrow. Reviewed: Care Plan, H&P, Labs, Medications, Previous Orders Changes from previous H/P or p: No Changes Objective Vitals Vital Signs Date Time Temp Pulse Resp B/P (MAP) Pulse Ox O2 Delivery O2 Flow Rate FiO2 11/09/24 05:00 98.4 50 18 117/64 (81) 98 98.4 11/08/24 20:10 Room Air* 0 21 Intake/Output Intake and Output 11/09/24 07:00 Intake Total 1700 ml Balance 1700 ml Intake Oral 1700 ml # Voids 6 # Bowel Movements 1 General Appearance: Alert, Oriented X3, Cooperative, No acute distress HEENT: Atraumatic, PERRLA, EOMI, Mucous membr. moist/pink Neck: Supple Lungs: Clear to auscultation, Normal air movement Cardiovascular: Regular rate, Normal S1, Normal S2, No murmurs, Gallops, Rubs Abdomen: Normal bowel sounds, Soft, No tenderness Neuro: Cranial nerves 3-12 NL Psych/Mental Status: Mental status NL Medications Current Medications Medications Dose Ordered Sig/Beth Route Start Time Stop Time Status Last Admin Dose Admin Sodium Chloride 10 ml Q8HR IV 11/06/24 14:00 11/09/24 06:17 10 ML Docusate Sodium 100 mg BIDPRN PRN PO 11/06/24 12:30 Acetaminophen 650 mg Q6HP PRN PO 11/06/24 12:30 Acetaminophen/ Hydrocodone Bitart 1 tab Q4HP PRN PO 11/06/24 12:30 Ondansetron HCl 4 mg Q4HP PRN IV 11/06/24 12:30 Diagnostic Test (Pha) 1 strip ACHS 11/06/24 17:00 11/09/24 11:30 1 STRIP Insulin Human Regular ACHS SC 11/06/24 17:00 11/09/24 12:36 3 UNITS Dextrose 50 ml UD PRN IV 11/06/24 12:30 Pantoprazole Sodium 40 mg DAILY IV 11/07/24 10:00 11/09/24 10:07 40 MG Laboratory Results Laboratory Tests 11/09/24 06:09 Chemistry Test 11/09/24 06:09 Albumin 2.9 g/dL (3.2-4.8) L Calcium Level 8.3 mg/dL (8.7-10.4) L Total Protein 5.5 g/dL (5.7-8.2) L LFT Test 11/09/24 06:09 Alanine Aminotransferase (ALT) 57 U/L (7-40) H Alkaline Phosphatase 68 U/L (46-116) Aspartate Amino Transferase (AST) 96 U/L (13-40) H Total Bilirubin 0.7 mg/dL (0.2-1.0) Urinalysis Test 11/06/24 13:14 Urine Color Light-yellow (Yellow) Urine Clarity Clear (Clear) Urine pH 6.5 (5.0-9.0) Urine Specific [place] 1.019 (1.001-1.035) Urine Protein Negative (Negative) Urine Ketones Negative (Negative) Urine Blood Negative /uL (Negative) Urine Nitrite Negative (Negative) Urine Bilirubin Negative (Negative) Urine Urobilinogen Normal mg/dL (Negative) Urine Leukocyte Esterase Negative /uL (Negative) Urine RBC 1 /hpf (0 - 3) Urine Microscopic WBC < 1 /HPF (0-3) Urine Squamous Epithelial Cells Few /hpf (<5) Urine Bacteria None seen /hpf (None Seen) Urine Glucose 4+ mg/dL (Normal) H Labs and/or images reviewed: Labs reviewed by me Assessment/Plan Assessment/Plan Shortness of breaths Severe anemia microcytic, status post transfusions Lateral lower extremity rule out CHF Oral candidiasis Esophageal candidiasis status post endoscopy Continuing current management. Continuing with Protonix. Continuing to transfuse as needed if hemoglobin less than seven. Nystatin swish and swallow. Waiting for colonoscopy. HIV test This medical document was created using an electronic medical record system with M*M flurency direct computerized dictation system. Although this document has been carefully reviewed, there may still be some phonetic and typographical errors. These areas are purely typographical due to imperfections of the software programs, and do not reflect any compromise in the patient's medical care. Plan discussed with: Patient Date of Service: Nov 09, 2024 Billing Provider: ABDULAZIZ DURBIN MD Common Visit Codes: [id number] INP/OBS CARE(HIGH) ABDULAZIZ DURBIN MD Nov 09, 2024 13:16
[2024-11-10] VITALS (7 sets, daily range): BP systolic 104–127; BP diastolic 63–90; PULSE 47–74; RESP 16–18; TEMP 97–98.4; O2SAT 96–98
[2024-11-10] MEDS: MAGNESIUM CITRATE SOLUTION 300 ML BTL PO ONE (06:09)
[2024-11-10] MEDS: GOLYTELY 4L KIT PO ONE (06:09)
[2024-11-10 07:21] LABS: Hemoglobin 10.2 g/dL (13.5-17.5); Mean Corpuscular Hemoglobin 24.7 pg (28.0-32.0); Nucleated Red Blood Cells % 0.2 %
[2024-11-10 07:24] LABS: Hematocrit 31.6 % (41.0-53.0); Mean Corpuscular Volume 76.8 fL (80.0-100.0)
[2024-11-10 07:40] LABS: Alanine Aminotransferase 66 U/L (7-40); Alkaline Phosphatase 71 U/L (46-116); Anion Gap 7 (5-15); BUN/Creatinine Ratio 9.3 (10.0-20.0); Blood Urea Nitrogen < 5 mg/dL (9-23); Calcium 8.5 mg/dL (8.7-10.4); Carbon Dioxide 24 mmol/L (20-31); Chloride 108 mmol/L (98-107); Glucose 89 mg/dL (74-106); Potassium 3.6 mmol/L (3.5-5.1); Sodium 139 mmol/L (136-145); Total Protein 5.7 g/dL (5.7-8.2)
[2024-11-10 07:41] LABS: Albumin 3.0 g/dL (3.2-4.8); Bilirubin, Total 0.7 mg/dL (0.2-1.0)
[2024-11-10] MEDS: NYSTATIN (MOUTH-THROAT) 500,000 UNITS/5 ML SUSP MT SCH (11:39)
--- NOTE | 2024-11-10 11:58 | DVHPN2 ---
Subjective The patient is seen and examined at bedside. No complaint today. The patient waiting for colonoscopy.. Reviewed: Care Plan, H&P, Labs, Medications, Previous Orders Changes from previous H/P or p: No Changes Objective Vitals Vital Signs Date Time Temp Pulse Resp B/P (MAP) Pulse Ox O2 Delivery O2 Flow Rate FiO2 11/10/24 09:00 98.4 48 18 127/70 (89) 96 98.4 11/10/24 08:00 Room Air* 0 21 Intake/Output Intake and Output 11/10/24 07:00 Intake Total 1300 ml Balance 1300 ml Intake Oral 1300 ml # Voids 7 # Bowel Movements 1 General Appearance: Alert, Oriented X3, Cooperative, No acute distress HEENT: Atraumatic, PERRLA, EOMI, Mucous membr. moist/pink Neck: Supple Lungs: Clear to auscultation, Normal air movement Cardiovascular: Regular rate, Normal S1, Normal S2, No murmurs, Gallops, Rubs Abdomen: Normal bowel sounds, Soft, No tenderness Neuro: Cranial nerves 3-12 NL Psych/Mental Status: Mental status NL Medications Current Medications Medications Dose Ordered Sig/Beth Route Start Time Stop Time Status Last Admin Dose Admin Sodium Chloride 10 ml Q8HR IV 11/06/24 14:00 11/10/24 06:09 10 ML Docusate Sodium 100 mg BIDPRN PRN PO 11/06/24 12:30 Acetaminophen 650 mg Q6HP PRN PO 11/06/24 12:30 Acetaminophen/ Hydrocodone Bitart 1 tab Q4HP PRN PO 11/06/24 12:30 Ondansetron HCl 4 mg Q4HP PRN IV 11/06/24 12:30 Diagnostic Test (Pha) 1 strip ACHS 11/06/24 17:00 11/10/24 11:04 1 STRIP Insulin Human Regular ACHS SC 11/06/24 17:00 11/09/24 22:14 4 UNITS Dextrose 50 ml UD PRN IV 11/06/24 12:30 Pantoprazole Sodium 40 mg DAILY IV 11/07/24 10:00 11/10/24 10:28 40 MG Nystatin 5 ml QID MT 11/10/24 12:00 11/10/24 11:39 5 ML Laboratory Results Laboratory Tests 11/10/24 06:30 Chemistry Test 11/10/24 06:30 Albumin 3.0 g/dL (3.2-4.8) L Calcium Level 8.5 mg/dL (8.7-10.4) L Total Protein 5.7 g/dL (5.7-8.2) LFT Test 11/10/24 06:30 Alanine Aminotransferase (ALT) 66 U/L (7-40) H Alkaline Phosphatase 71 U/L (46-116) Aspartate Amino Transferase (AST) 93 U/L (13-40) H Total Bilirubin 0.7 mg/dL (0.2-1.0) Urinalysis Test 11/06/24 13:14 Urine Color Light-yellow (Yellow) Urine Clarity Clear (Clear) Urine pH 6.5 (5.0-9.0) Urine Specific [place] 1.019 (1.001-1.035) Urine Protein Negative (Negative) Urine Ketones Negative (Negative) Urine Blood Negative /uL (Negative) Urine Nitrite Negative (Negative) Urine Bilirubin Negative (Negative) Urine Urobilinogen Normal mg/dL (Negative) Urine Leukocyte Esterase Negative /uL (Negative) Urine RBC 1 /hpf (0 - 3) Urine Microscopic WBC < 1 /HPF (0-3) Urine Squamous Epithelial Cells Few /hpf (<5) Urine Bacteria None seen /hpf (None Seen) Urine Glucose 4+ mg/dL (Normal) H Labs and/or images reviewed: Labs reviewed by me Assessment/Plan Assessment/Plan Shortness of breaths Severe anemia microcytic, status post transfusions Lateral lower extremity rule out CHF Oral candidiasis Esophageal candidiasis status post endoscopy Continuing current management. Continuing with Protonix. Continuing to transfuse as needed if hemoglobin less than seven. Nystatin swish and swallow. Waiting for colonoscopy. HIV test This medical document was created using an electronic medical record system with M*[employer] direct computerized dictation system. Although this document has been carefully reviewed, there may still be some phonetic and typographical errors. These areas are purely typographical due to imperfections of the software programs, and do not reflect any compromise in the patient's medical care. Plan discussed with: Patient My Orders Orders - ABDULAZIZ DURBIN MD Procedure Category Date Status Time Nystatin PHA 11/10/24 In Process (Mouth-Throat) 12:00 Date of Service: Nov 10, 2024 Billing Provider: ABDULAZIZ DURBIN MD Common Visit Codes: [id number] INP/OBS CARE(HIGH) ABDULAZIZ DURBIN MD Nov 10, 2024 11:58
[2024-11-10] MEDS: METOCLOPRAMIDE HCL 5MG/ml INJ 2ml VIAL ONE (14:27)
[2024-11-10] MEDS: METOCLOPRAMIDE HCL 5MG/ml INJ 2ml VIAL IV ONE (14:58)
[2024-11-10] MEDS ORDERED: MIDAZOLAM HCL 2MG/2ML 2ml VIAL (1mg/ml) ONE (15:54)
[2024-11-10] MEDS ORDERED: fentaNYL CITRATE 100 MCG/2 ML VL ONE (15:54)
[2024-11-10] MEDS ORDERED: PROPOFOL 10 MG/ML 20 ML IV ONE (16:22)
--- NOTE | 2024-11-10 16:22 | DVHOP2 ---
Operative Report DATE OF OPERATION: 11/10/24 PROCEDURE: Diagnostic Colonoscopy. PREOPERATIVE INDICATION: The patient is a 59 -year-old male undergoing colonoscopy for colon cancer screening POSTOPERATIVE DIAGNOSES: 1. Trace internal hemorrhoids otherwise essentially completely normal colonoscopy examination up to the cecum and terminal ileum PROCEDURE PERFORMED BY: April Leyva M.D. SCOPE: Olympus videocolonoscope. ASA CLASS: 3. PREOPERATIVE MEDICATIONS: Mac sedation, Dr. Wright PROCEDURE IN DETAIL: After obtaining an informed consent, the patient was placed on left lateral decubitus position. He was then sedated with the above medications. A rectal examination was performed that was normal. The colonoscope was then passed through the anus into the rectosigmoid and through the descending, transverse, and ascending colon up to the cecum with visualization of the appendiceal orifice, base of the cecum and the ileocecal valve. The colonoscope was then withdrawn. The distal 5-10 cm of the terminal ileum were normal No polyps or masses were seen. There was no colitis or diverticular disease. On retroflexion patient had trace to 1+ internal hemorrhoids. The patient tolerated the procedure well without difficulty. WITHDRAWAL TIME: 6 minutes QUALITY OF THE PREP: [place] Bowel Prep score: 9. COMPLICATIONS : None SPECIMENS: None DISPOSITION: Transfer back to the floor Stable PLAN: 1. Repeat colonoscopy in 10 years 2. Resume GI soft diet advance as tolerated 3. Local anorectal hemorrhoidal care 4. Patient is cleared from GI point of view APRIL LEYVA MD Nov 10, 2024 16:22
[2024-11-11] VITALS (8 sets, daily range): BP systolic 91–123; BP diastolic 45–72; PULSE 48–70; RESP 15–20; TEMP 97.2–98.3; O2SAT 97–99
[2024-11-11 06:50] LABS: Hematocrit 30.2 % (41.0-53.0); Mean Corpuscular Hemoglobin 24.9 pg (28.0-32.0); Mean Corpuscular Volume 76.8 fL (80.0-100.0); Nucleated Red Blood Cells % 0.0 %
[2024-11-11 07:01] LABS: Hemoglobin 9.8 g/dL (13.5-17.5)
[2024-11-11 07:05] LABS: Alkaline Phosphatase 72 U/L (46-116); Anion Gap 7 (5-15); Carbon Dioxide 22 mmol/L (20-31); Potassium 3.9 mmol/L (3.5-5.1); Total Protein 5.8 g/dL (5.7-8.2)
[2024-11-11 07:06] LABS: Bilirubin, Total 0.7 mg/dL (0.2-1.0)
[2024-11-11 07:23] LABS: Alanine Aminotransferase 54 U/L (7-40); Albumin 3.2 g/dL (3.2-4.8); BUN/Creatinine Ratio 8.6 (10.0-20.0); Blood Urea Nitrogen < 5 mg/dL (9-23); Calcium 8.6 mg/dL (8.7-10.4); Chloride 107 mmol/L (98-107); Glucose 170 mg/dL (74-106); Sodium 136 mmol/L (136-145)
--- NOTE | 2024-11-11 11:44 | DVHPN2 ---
Subjective The patient is seen and examined at bedside. No complaint today. The patient waiting for colonoscopy.. Reviewed: Care Plan, H&P, Labs, Medications, Previous Orders Changes from previous H/P or p: No Changes Objective Vitals Vital Signs Date Time Temp Pulse Resp B/P (MAP) Pulse Ox O2 Delivery O2 Flow Rate FiO2 11/11/24 09:00 98.2 58 17 106/60 (75) 99 98.2 11/11/24 08:23 Room Air* 0 21 Intake/Output Intake and Output 11/11/24 07:00 Intake Total 300 ml Balance 300 ml Intake Oral 300 ml # Voids 5 # Bowel Movements 3 General Appearance: Alert, Oriented X3, Cooperative, No acute distress HEENT: Atraumatic, PERRLA, EOMI, Mucous membr. moist/pink Neck: Supple Lungs: Clear to auscultation, Normal air movement Cardiovascular: Regular rate, Normal S1, Normal S2, No murmurs, Gallops, Rubs Abdomen: Normal bowel sounds, Soft, No tenderness Neuro: Cranial nerves 3-12 NL Psych/Mental Status: Mental status NL Medications Current Medications Medications Dose Ordered Sig/Beth Route Start Time Stop Time Status Last Admin Dose Admin Sodium Chloride 10 ml Q8HR IV 11/06/24 14:00 11/11/24 06:07 10 ML Docusate Sodium 100 mg BIDPRN PRN PO 11/06/24 12:30 Acetaminophen 650 mg Q6HP PRN PO 11/06/24 12:30 Acetaminophen/ Hydrocodone Bitart 1 tab Q4HP PRN PO 11/06/24 12:30 Ondansetron HCl 4 mg Q4HP PRN IV 11/06/24 12:30 Diagnostic Test (Pha) 1 strip ACHS 11/06/24 17:00 11/11/24 10:42 1 STRIP Insulin Human Regular ACHS SC 11/06/24 17:00 11/11/24 10:42 6 UNITS Dextrose 50 ml UD PRN IV 11/06/24 12:30 Pantoprazole Sodium 40 mg DAILY IV 11/07/24 10:00 11/11/24 09:42 40 MG Nystatin 5 ml QID MT 11/10/24 12:00 11/11/24 06:11 5 ML Laboratory Results Laboratory Tests 11/11/24 06:08 Chemistry Test 11/11/24 06:08 Albumin 3.2 g/dL (3.2-4.8) Calcium Level 8.6 mg/dL (8.7-10.4) L Total Protein 5.8 g/dL (5.7-8.2) LFT Test 11/11/24 06:08 Alanine Aminotransferase (ALT) 54 U/L (7-40) H Alkaline Phosphatase 72 U/L (46-116) Aspartate Amino Transferase (AST) 41 U/L (13-40) H Total Bilirubin 0.7 mg/dL (0.2-1.0) Urinalysis Test 11/06/24 13:14 Urine Color Light-yellow (Yellow) Urine Clarity Clear (Clear) Urine pH 6.5 (5.0-9.0) Urine Specific [place] 1.019 (1.001-1.035) Urine Protein Negative (Negative) Urine Ketones Negative (Negative) Urine Blood Negative /uL (Negative) Urine Nitrite Negative (Negative) Urine Bilirubin Negative (Negative) Urine Urobilinogen Normal mg/dL (Negative) Urine Leukocyte Esterase Negative /uL (Negative) Urine RBC 1 /hpf (0 - 3) Urine Microscopic WBC < 1 /HPF (0-3) Urine Squamous Epithelial Cells Few /hpf (<5) Urine Bacteria None seen /hpf (None Seen) Urine Glucose 4+ mg/dL (Normal) H Assessment/Plan Assessment/Plan Shortness of breaths Severe anemia microcytic, status post transfusions Lateral lower extremity rule out CHF Oral candidiasis Esophageal candidiasis status post endoscopy Continuing current management. Continuing with Protonix. Continuing to transfuse as needed if hemoglobin less than seven. Nystatin swish and swallow. Waiting for colonoscopy. HIV test This medical document was created using an electronic medical record system with [employer] direct computerized dictation system. Although this document has been carefully reviewed, there may still be some phonetic and typographical errors. These areas are purely typographical due to imperfections of the software programs, and do not reflect any compromise in the patient's medical care. Plan discussed with: Patient Date of Service: Nov 11, 2024 Billing Provider: ABDULAZIZ DURBIN MD Common Visit Codes: [id number] INP/OBS CARE(HIGH) ABDULAZIZ DURBIN MD Nov 11, 2024 11:44
--- NOTE | 2024-11-11 15:15 | DVHPN2 ---
Progress Note - Dictate Date Seen: Nov 11, 2024 Medical Necessity Reason Pt with a Central, PICC or Fol: No Subjective No new complaints tolerating diet No GI bleeding Hb 10.8 Colonoscopy normal vital signs Vital Sign Date Time Temp Pulse Resp B/P (MAP) Pulse Ox O2 Delivery O2 Flow Rate FiO2 11/11/24 13:00 98.3 57 18 91/45 (60) 98 98.3 11/11/24 08:23 Room Air* 0 21 Total Intake and Output 11/10/24 11/10/24 11/11/24 15:00 23:00 07:00 Intake Total 0 ml 300 ml Balance 0 ml 300 ml medications Current Medications Medications Dose Ordered Sig/Beth Route Start Time Stop Time Status Last Admin Dose Admin Sodium Chloride 10 ml Q8HR IV 11/06/24 14:00 11/11/24 12:54 10 ML Docusate Sodium 100 mg BIDPRN PRN PO 11/06/24 12:30 Acetaminophen 650 mg Q6HP PRN PO 11/06/24 12:30 Acetaminophen/ Hydrocodone Bitart 1 tab Q4HP PRN PO 11/06/24 12:30 Ondansetron HCl 4 mg Q4HP PRN IV 11/06/24 12:30 Diagnostic Test (Pha) 1 strip ACHS 11/06/24 17:00 11/11/24 10:42 1 STRIP Insulin Human Regular ACHS SC 11/06/24 17:00 11/11/24 10:42 6 UNITS Dextrose 50 ml UD PRN IV 11/06/24 12:30 Pantoprazole Sodium 40 mg DAILY IV 11/07/24 10:00 11/11/24 09:42 40 MG Nystatin 5 ml QID MT 11/10/24 12:00 11/11/24 12:18 5 ML objective General Appearance: Alert, Oriented X3, Cooperative, No acute distress HEENT: Atraumatic, PERRLA, EOMI, Mucous membr. moist/pink Neck: Supple Lungs: Clear to auscultation, Normal air movement Cardiovascular: Regular rate, Normal S1, Normal S2, No murmurs, Gallops, Rubs Abdomen: Normal bowel sounds, Soft, No tenderness Neuro: Cranial nerves 3-12 NL Psych/Mental Status: Mental status NL laboratory and microbiology Laboratory Tests 11/11/24 06:08 Test 8/26/25 06:08 Range/Units Serum Glucose 170 H 74-106 mg/dL Problems(with codes): (1) Uncontrolled type 2 diabetes mellitus (2) Severe anemia (3) Radha esophagitis Prognosis Plan Diet as tolerated PPI Nystatitin swish and swallow Monitor labs D/C planning as per hospitalist Dietary Evaluation Review Comments: 1) Encourage optimal PO intake 2) Advance to 60g CCHO cardiac diet when medically feasible 3) Follow-up with gastroenterology and cardiology 4) Continue to monitor I&O, labs, and skin integrity Expected Outcomes/Goals: 1) appetite and labs to improve 2) diet to advance 3) f/u in 3-5 days Plan discussed with: Patient CC Plasma Assessment Blood Product Administration S: [id number] APRIL NAIK MD Nov 11, 2024 15:15
[2024-11-12 01:00] VITALS: BP 117/63; PULSE 53; RESP 20; TEMP 97.1; O2SAT 98
[2024-11-12 05:00] VITALS: BP 105/64; PULSE 59; RESP 18; TEMP 98; O2SAT 99
[2024-11-12 08:00] VITALS: PULSE 45
[2024-11-12 08:39] VITALS: BP 115/64; PULSE 45; RESP 15; TEMP 98.2; O2SAT 100
--- NOTE | 2024-11-12 12:00 | DVHPN2 ---
Subjective The patient is seen and examined at bedside. No complaint today. The patient waiting for colonoscopy.. Reviewed: Care Plan, H&P, Labs, Medications, Previous Orders Objective Vitals Vital Signs Date Time Temp Pulse Resp B/P (MAP) Pulse Ox O2 Delivery O2 Flow Rate FiO2 11/12/24 08:39 98.2 45 15 115/64 (81) 100 98.2 11/11/24 20:00 Room Air* 0 21 Intake/Output Intake and Output 11/12/24 07:00 Intake Total 1120 ml Balance 1120 ml Intake Oral 1120 ml # Voids 6 General Appearance: Alert, Oriented X3, Cooperative, No acute distress HEENT: Atraumatic, PERRLA, EOMI, Mucous membr. moist/pink Neck: Supple Lungs: Clear to auscultation, Normal air movement Cardiovascular: Regular rate, Normal S1, Normal S2, No murmurs, Gallops, Rubs Abdomen: Normal bowel sounds, Soft, No tenderness Neuro: Cranial nerves 3-12 NL Psych/Mental Status: Mental status NL Medications Current Medications Medications Dose Ordered Sig/Beth Route Start Time Stop Time Status Last Admin Dose Admin Sodium Chloride 10 ml Q8HR IV 11/06/24 14:00 11/12/24 11:50 10 ML Docusate Sodium 100 mg BIDPRN PRN PO 11/06/24 12:30 Acetaminophen 650 mg Q6HP PRN PO 11/06/24 12:30 Acetaminophen/ Hydrocodone Bitart 1 tab Q4HP PRN PO 11/06/24 12:30 Ondansetron HCl 4 mg Q4HP PRN IV 11/06/24 12:30 Diagnostic Test (Pha) 1 strip ACHS 11/06/24 17:00 11/12/24 10:57 1 STRIP Insulin Human Regular ACHS SC 11/06/24 17:00 11/12/24 11:50 4 UNITS Dextrose 50 ml UD PRN IV 11/06/24 12:30 Pantoprazole Sodium 40 mg DAILY IV 11/07/24 10:00 11/12/24 10:56 40 MG Nystatin 5 ml QID MT 11/10/24 12:00 11/12/24 11:47 5 ML Laboratory Results Laboratory Tests 11/11/24 06:08 Urinalysis Test 11/06/24 13:14 Urine Color Light-yellow (Yellow) Urine Clarity Clear (Clear) Urine pH 6.5 (5.0-9.0) Urine Specific [place] 1.019 (1.001-1.035) Urine Protein Negative (Negative) Urine Ketones Negative (Negative) Urine Blood Negative /uL (Negative) Urine Nitrite Negative (Negative) Urine Bilirubin Negative (Negative) Urine Urobilinogen Normal mg/dL (Negative) Urine Leukocyte Esterase Negative /uL (Negative) Urine RBC 1 /hpf (0 - 3) Urine Microscopic WBC < 1 /HPF (0-3) Urine Squamous Epithelial Cells Few /hpf (<5) Urine Bacteria None seen /hpf (None Seen) Urine Glucose 4+ mg/dL (Normal) H Assessment/Plan Assessment/Plan Shortness of breaths Severe anemia microcytic, status post transfusions Lateral lower extremity rule out CHF Oral candidiasis Esophageal candidiasis status post endoscopy Continuing current management. Continuing with Protonix. Continuing to transfuse as needed if hemoglobin less than seven. Nystatin swish and swallow. Waiting for colonoscopy. HIV test This medical document was created using an electronic medical record system with [employer] direct computerized dictation system. Although this document has been carefully reviewed, there may still be some phonetic and typographical errors. These areas are purely typographical due to imperfections of the software programs, and do not reflect any compromise in the patient's medical care. ABDULAZIZ DURBIN MD Nov 12, 2024 12:00
[2024-11-12 13:00] VITALS: BP 125/77; PULSE 43; RESP 16; TEMP 98.2; O2SAT 99
[2024-11-12] MEDS ORDERED: DOCU-265 PO (13:12)
[2024-11-12] MEDS ORDERED: NYS5LQ MT (13:12)
[2024-11-12] MEDS ORDERED: METF-370 PO (13:12)
[2024-11-12] MEDS ORDERED: HYDR-4902 PO (13:12)
[2024-11-12] MEDS ORDERED: PANT40TA2 PO (13:12)
[2024-11-12] MEDS ORDERED: FLUC200T PO (13:16)
--- NOTE | 2024-11-12 13:16 | DVHDS2 ---
Discharge Summary Date of Admission Nov 06, 2024 at 12:24 Date of Discharge: Nov 12, 2024 Admitting Diagnosis Shortness of breaths Severe anemia microcytic, status post transfusions Lateral lower extremity rule out CHF Oral candidiasis Esophageal candidiasis status post endoscopy Labs/Diagnostic Data: Laboratory Results Test 11/12/24 10:59 11/11/24 16:43 11/11/24 06:08 11/09/24 12:34 POC Glucose 205 mg/dl (70-106) HIV (1&2) Antibody Negative (Negative) White Blood Count 4.2 10^3/uL (4.4-10.8) Red Blood Count 3.93 10^6/uL (4.5-5.90) Hemoglobin 9.8 g/dL (13.5-17.5) Hematocrit 30.2 % (41.0-53.0) Mean Corpuscular Volume 76.8 fL (80.0-100.0) Mean Corpuscular Hemoglobin 24.9 pg (28.0-32.0) Mean Corpuscular Hemoglobin Concent 32.4 g/dL (32.0-36.0) Red Cell Distribution Width 29.6 % (11.8-14.3) Platelet Count 178 10^3/uL (140-450) Mean Platelet Volume 8.5 fL (6.9-10.8) Neutrophils (%) (Auto) 84.3 % (37.0-80.0) Lymphocytes (%) (Auto) 11.6 % (10.0-50.0) Monocytes (%) (Auto) 3.8 % (0.0-12.0) Eosinophils (%) (Auto) 0.0 % (0.0-7.0) Basophils (%) (Auto) 0.3 % (0.0-2.0) Neutrophils # (Auto) 3.5 10 ^3/uL (1.6-8.6) Lymphocytes # (Auto) 0.5 10 ^3/uL (0.4-5.4) Monocytes # (Auto) 0.2 10 ^3/uL (0-1.3) Eosinophils # (Auto) 0 10 ^3/uL (0-0.8) Basophils # (Auto) 0 10 ^3/uL (0-0.2) Nucleated Red Blood Cells 0.0 % Sodium Level 136 mmol/L (136-145) Potassium Level 3.9 mmol/L (3.5-5.1) Chloride Level 107 mmol/L (98-107) Carbon Dioxide Level 22 mmol/L (20-31) Anion Gap 7 (5-15) Blood Urea Nitrogen < 5 mg/dL (9-23) Creatinine 0.58 mg/dL (0.700-1.30) Glomerular Filtration Rate Calc 112 mL/min (>90) BUN/Creatinine Ratio 8.6 (10.0-20.0) Serum Glucose 170 mg/dL (74-106) Calcium Level 8.6 mg/dL (8.7-10.4) Total Bilirubin 0.7 mg/dL (0.2-1.0) Aspartate Amino Transferase (AST) 41 U/L (13-40) Alanine Aminotransferase (ALT) 54 U/L (7-40) Alkaline Phosphatase 72 U/L (46-116) Total Protein 5.8 g/dL (5.7-8.2) Albumin 3.2 g/dL (3.2-4.8) Stool Occult Blood Negative (Negative) Stool Occult Blood Sample #3 (Negative) Test 11/09/24 06:09 11/08/24 06:15 11/07/24 07:31 11/06/24 13:14 Platelet Estimate [place] Large Platelets Few Anisocytosis (manual) Slight Microcytosis Slight Ovalocytes Few Hypochromasia (manual) Slight Carcinoembryonic Antigen 5.11 ng/mL (<=5.0) Prothrombin Time 11.9 sec (9.3-11.8) Prothrombin Time INR 1.14 (0.9-1.15) Vitamin B12 Level 537 pg/mL (211-911) Urine Color Light-yellow (Yellow) Urine Clarity Clear (Clear) Urine pH 6.5 (5.0-9.0) Urine Specific [place] 1.019 (1.001-1.035) Urine Protein Negative (Negative) Urine Ketones Negative (Negative) Urine Blood Negative /uL (Negative) Urine Nitrite Negative (Negative) Urine Bilirubin Negative (Negative) Urine Urobilinogen Normal mg/dL (Negative) Urine Leukocyte Esterase Negative /uL (Negative) Urine RBC 1 /hpf (0 - 3) Urine Microscopic WBC < 1 /HPF (0-3) Urine Squamous Epithelial Cells Few /hpf (<5) Urine Bacteria None seen /hpf (None Seen) Urine Glucose 4+ mg/dL (Normal) Urine Opiates Screen Neg (NEGATIVE) Urine Fentanyl Screen Neg (NEGATIVE) Urine Barbiturates Screen Neg (NEGATIVE) Urine Phencyclidine Screen Neg (NEGATIVE) Urine Amphetamines Screen Neg (NEGATIVE) Urine Benzodiazepines Screen Neg (NEGATIVE) Urine Cocaine Screen Neg (NEGATIVE) Urine Cannabinoids Screen Neg (NEGATIVE) Test 11/06/24 12:46 11/06/24 10:22 Iron Level 11 ug/dL (65-175) Total Iron Binding Capacity 327 ug/dL (250-425) Percent Iron Saturation 3.4 % (20-55) Ferritin 5.0 ng/mL (22-322) B-Type Natriuretic Peptide 123.36 pg/mL (0-100) Beta-Hydroxybutyric Acid 0.115 mmol/L (< 0.4) Polychromasia Slight Other Laboratory Tests 11/11/24 06:08 Brief Hx & Hospital Course: This is a 59 years old male with past medical history hypertension come to emergency department with chief complaint of bilateral lower extremity swelling and shortness for breath on exertion for one month. The patient was admitted. The patient was found to have hemoglobin of 3.1. The patient received four packed red blood cell transfusions. Echo was done showed EF of 65%. The patient was given Lasix. The patient shortness for breath improved. The patient also had unintended weight loss for couple months and complain of chill and night sweats . Stressor duration no acute process. Ultrasound bilateral lower extremity showed no DVT. CT abdomen pelvis showed chronic pancreatitis and possible colitis but no other abnormality finding. EGD was done. The patient was found to have esophageal candidiasis and also oral candidiasis. The patient was started on nystatin swish and swallow. The patient's HIV was checked in his was negative. Stool Occult blood was checked is also negative. The patient subsequently doing better. Able to swallow and keep his food down. Bilateral lower extremity edema improved. I am going to discharge him home today. Advised him to follow up with primary care physician 1-2 weeks. Follow up with palletiser operator's per schedule. Follow up with GI specialist per schedule. Physical exam: HEENT: Normocephalic atraumatic pupils equal react to light and accommodation. Extraocular muscles intact, conjunctiva pink, oropharynx moist, no thrush, no exudate. Lymphatic: No lymphadenopathy Cardiovascular exam: S1, S2 was heard. No murmurs, rubs, gallops Lung: Clear on auscultation bilaterally, no wheeze, rale, rhonchi. GI: Abdominal soft, nondistended, nontenderness, positive bowel sounds. Extremity: No crepitus, cyanosis, edema. Pedal pulses present bilateral. Full range of motion. Skin: Normal turgor, no rash. Psych: Alert, oriented x3. Neurology: No focal deficits, cranial nerve II to XII grossly intact. This medical document was created using an electronic medical record system with [employer] direct computerized dictation system. Although this document has been carefully reviewed, there may still be some phonetic and typographical errors. These areas are purely typographical due to imperfections of the software programs, and do not reflect any compromise in the patient's medical care. Condition at Discharge: Stable Final Diagnosis/Problems List Esophageal candidisis Shortness of breaths Severe anemia microcytic, status post transfusions Lateral lower extremity rule out CHF Oral candidiasis Esophageal candidiasis status post endoscopy Discharge Disposition: Home Discharge Instruct/Medications Diet: Consistent carbohydrate Activity: No Restrictions, As Tolerated Follow Up/Referral: pcp 1-2 weeks Medications: see med list Scheduled Fluconazole (Diflucan), 1 TAB PO DAILY Metformin Hydrochloride (Metformin Hcl), 1 TAB PO BID Nystatin (Mouth-Throat) (Mycostatin (Mouth-Throat)), 5 ML MT QID Pantoprazole Sodium Sesquihydr (Protonix), 40 MG PO DAILY Scheduled PRN Docusate Sodium (Docusate Sodium), 100 MG PO BIDPRN PRN Hydrocodone-Acetaminophen (Hydrocodone Bitartrate/AC 5-325 mg), 1 TAB PO Q4HP PRN Discharge Statement: "Patient was advised to return to the ER or call 911 if any headaches, dizziness, shortness of breath, chest pain, abdominal pain, bleeding, fevers, or worsening of medical condition. Patient was counseled about treatment plan, medications, possible side effects, patientverbalized understanding. All questions were answered to the best of my ability. This discharge took greater then 30 minutes in planning, reviewing documentation, counseling the patient, and discussing with other team members." ASSESSMENT ASSESSMENT Assessment Esophageal candidisis Date of Service: Nov 12, 2024 Billing Provider: ABDULAZIZ DURBIN MD Common Visit Codes: 38882-[id number] DISCH DAY >30min ABDULAZIZ DURBIN MD Nov 12, 2024 13:16
--- NOTE | 2024-11-12 13:21 | DVHPN2 ---
Progress Note - Dictate Date Seen: Nov 12, 2024 Medical Necessity Reason Pt with a Central, PICC or Fol: No Subjective No new complaints tolerating diet No GI bleeding Hb 9.8 Colonoscopy normal vital signs Vital Sign Date Time Temp Pulse Resp B/P (MAP) Pulse Ox O2 Delivery O2 Flow Rate FiO2 11/12/24 08:39 98.2 45 15 115/64 (81) 100 98.2 11/11/24 20:00 Room Air* 0 21 Total Intake and Output 11/11/24 11/11/24 11/12/24 14:59 22:59 06:59 Intake Total 520 ml 600 ml Balance 520 ml 600 ml medications Current Medications Medications Dose Ordered Sig/Beth Route Start Time Stop Time Status Last Admin Dose Admin Sodium Chloride 10 ml Q8HR IV 11/06/24 14:00 11/12/24 11:50 10 ML Docusate Sodium 100 mg BIDPRN PRN PO 11/06/24 12:30 Acetaminophen 650 mg Q6HP PRN PO 11/06/24 12:30 Acetaminophen/ Hydrocodone Bitart 1 tab Q4HP PRN PO 11/06/24 12:30 Ondansetron HCl 4 mg Q4HP PRN IV 11/06/24 12:30 Diagnostic Test (Pha) 1 strip ACHS 11/06/24 17:00 11/12/24 10:57 1 STRIP Insulin Human Regular ACHS SC 11/06/24 17:00 11/12/24 11:50 4 UNITS Dextrose 50 ml UD PRN IV 11/06/24 12:30 Pantoprazole Sodium 40 mg DAILY IV 11/07/24 10:00 11/12/24 10:56 40 MG Nystatin 5 ml QID MT 11/10/24 12:00 11/12/24 11:47 5 ML objective General Appearance: Alert, Oriented X3, Cooperative, No acute distress HEENT: Atraumatic, PERRLA, EOMI, Mucous membr. moist/pink Neck: Supple Lungs: Clear to auscultation, Normal air movement Cardiovascular: Regular rate, Normal S1, Normal S2, No murmurs, Gallops, Rubs Abdomen: Normal bowel sounds, Soft, No tenderness Neuro: Cranial nerves 3-12 NL Psych/Mental Status: Mental status NL laboratory and microbiology Laboratory Tests 11/11/24 06:08 Test 8/26/25 06:08 Range/Units Serum Glucose 170 H 74-106 mg/dL Problems(with codes): (1) Radha esophagitis (2) Severe anemia (3) Uncontrolled type 2 diabetes mellitus Prognosis Plan Diet as tolerated PPI Nystatitin swish and swallow Monitor labs D/C planning as per hospitalist Dietary Evaluation Review Comments: 1) Encourage optimal PO intake 2) Advance to 60g CCHO cardiac diet when medically feasible 3) Follow-up with gastroenterology and cardiology 4) Continue to monitor I&O, labs, and skin integrity Expected Outcomes/Goals: 1) appetite and labs to improve 2) diet to advance 3) f/u in 3-5 days Plan discussed with: Patient CC Plasma Assessment Blood Product Administration S: [id number] APRIL NAIK MD Nov 12, 2024 13:21
== END 2024-11-12 16:00 | disposition home or self-care (01) | DRG 241 ==
LOC: ER 09:17 → OVERFLOW 12:24 → EAST 18:33 → TELE-EAST 18:39
PROVIDERS: ADMIT Internal Medicine; ATTEND Internal Medicine
PROC: 30233N1 Transfusion of Nonautologous Red Blood Cells into Peripheral Vein, Percutaneous Approach (ICD-10-PCS; principal; 2024-11-06)
PROC: 0DB98ZX Excision of Duodenum, Via Natural or Artificial Opening Endoscopic, Diagnostic (ICD-10-PCS; 2024-11-07)
PROC: 0DB68ZX Excision of Stomach, Via Natural or Artificial Opening Endoscopic, Diagnostic (ICD-10-PCS; 2024-11-07)
PROC: 0DB58ZX Excision of Esophagus, Via Natural or Artificial Opening Endoscopic, Diagnostic (ICD-10-PCS; 2024-11-07)
PROC: 0DJD8ZZ Inspection of Lower Intestinal Tract, Via Natural or Artificial Opening Endoscopic (ICD-10-PCS; 2024-11-10)
DX: K29.00 Acute gastritis without bleeding (principal); I50.33 Acute on chronic diastolic (congestive) heart failure; B37.81 Candidal esophagitis; B37.0 Candidal stomatitis; E44.0 Moderate protein-calorie malnutrition; D62 Acute posthemorrhagic anemia; D50.9 Iron deficiency anemia, unspecified; F17.210 Nicotine dependence, cigarettes, uncomplicated; E11.9 Type 2 diabetes mellitus without complications; K64.8 Other hemorrhoids; Z59.00 Homelessness unspecified; Z86.718 Personal history of other venous thrombosis and embolism; Z79.899 Other long term (current) drug therapy; I11.0 Hypertensive heart disease with heart failure; Z68.21 Body mass index [BMI] 21.0-21.9, adult
CPT/HCPCS: 36415; 71045; 74176; 80053; 80307; 81001; 82010; 82270; 82378; 82607; 82728; 82962; 83540; 83550; 83880; 85025; 85610; 86703; 86850; 86900; 86901; 86920; 93306; 93970; 96360; G0378; J1100; J1815; J2003; J2250; J2405; J2470; J2704